=== PATIENT | male | born 1965 | race African-American/Black ===

== ENCOUNTER 2016-10-14 10:16 | Emergency (ER) | payer OTHER ==
[2016-10-14 10:24] VITALS: BMI 25.7
--- NOTE | 2016-10-14 11:39 | PDOC ---
History of Present Illness - General Chief Complaint: Rectal Bleed Stated Complaint: RECTAL BLEED Time Seen by Provider: 10/14/16 11:31 History Source: Patient - History of Present Illness Timing/Duration: reports: intermittent Quality: reports: mild Past History - Past Medical History Allergies/Adverse Reactions: Allergies Allergy/AdvReac Type Severity Reaction Status Date / Time No Known Allergies Allergy Verified 10/14/16 10:21 Home Medications: Ambulatory Orders Amlodipine Besylate [Norvasc -] 5 mg PO DAILY 12/15/13 Atorvastatin Ca [Lipitor] 10 mg PO HS 12/15/13 Naproxen [Naprosyn -] 500 mg PO BID PRN #14 tablet 08/05/15 Aspirin [Ecotrin] 81 mg PO DAILY 10/14/16 HTN: Yes Hypercholesterolemia: Yes Other medical history: sickle cell trait, heart murmur,umbalical hernia - Immunization History Immunization Up to Date: Yes - Psycho/Social/Smoking Cessation Hx Anxiety: No Suicidal Ideation: No Smoking History: Never smoked Have you smoked in the past 12 months: No Information on smoking cessation initiated: No Hx Alcohol Use: No Drug/Substance Use Hx: No Substance Use Type: Marijuana Review of Systems - Review of Systems Constitutional: No: Chills, Fever Respiratory: No: Shortness of Breath Cardiac (ROS): No: Chest Pain, Lightheadedness ABD/GI: Yes: Blood Streaked Bowels, Constipated. No: Diarrhea, Nausea, Vomiting , Abdominal cramping, Tarry Stools *Physical Exam - Vital Signs Last Vital Signs Temp Pulse Resp BP Pulse Ox 98.2 F 62 18 124/68 100 10/14/16 10:22 10/14/16 10:22 10/14/16 10:22 10/14/16 10:22 10/14/16 10:22 - Physical Exam General Appearance: Yes: Appropriately Dressed. No: Apparent Distress HEENT: positive: Normal Voice Neck: positive: Supple Respiratory/Chest: negative: Respiratory Distress Gastrointestinal/Abdominal: positive: Soft. negative: Tender Rectal Exam: positive: other (soft brown stool, no melena, no hemorrhoid or obvious fissure seen) Extremity: positive: Normal Inspection Integumentary: positive: Dry, Warm Neurologic: positive: Fully Oriented, Alert, Normal Mood/Affect ED Treatment Course - LABORATORY CBC & Chemistry Diagram: 10/14/16 11:43 08/15/17 11:43 Medical Decision Making - Medical Decision Making 10/14/16 11:36 51-year-old male history of hypertension on baby aspirin here with rectal bleeding. Patient states this morning after having a bowel movement, he noticed small amount of bright red blood in toilet. States his notices same yesterday. Patient states he does suffer from constipation, but on stool softeners, which helps relieve constipation. Denies abdominal pain, dizziness, nausea or vomiting. States he had a colonoscopy several years ago that was normal. See exam Stable GIB Has intermittent constipation, on stool softeners Takes baby asa daily Well estrellita and stable w/ unremarkable exam Will check labs and if normal, will dc w/ PMD and GI f/u 10/14/16 11:39 10/14/16 12:27 Trace blood on stool occult. Labs unremarkable and pt has remained stable in ED w/ no further GIB while here. Will dc w/ PMD c w/ PMD for possible GI f/u *DC/Admit/Observation/Transfer Diagnosis at time of Disposition: Lower GI bleed - Discharge Dispostion Disposition: HOME Condition at time of disposition: Good - Patient Instructions Printed Discharge Instructions: DI for Rectal Bleeding Additional Instructions: The cause of your lower GI bleed is possibly related to constipation. Your labs were normal in the ER. Please follow-up with your PMD for possible referral to a GI specialist
[2016-10-14 11:51] LABS: BASOPHIL 1.1 % (0-2.0); EOSINOPHIL 0.5 % (0-4.5); MCH 25.7 pg (25.7-33.7); MEAN PLT VOLUME 8.6 fl (7.5-11.1); PLATELET COUNT 208 K/MM3 (134-434); RDW 16.5 % (11.9-15.9); WHITE BLOOD COUNT 6.9 K/mm3 (4.0-10.0)
[2016-10-14 12:08] LABS: INR 1.04 (0.82-1.09); PROTHROMBIN TIME (PATIENT) 11.4 SEC (9.98-11.88)
[2016-10-14 12:15] LABS: ALBUMIN 4.2 g/dl (3.4-5.0); ALK PHOS 73 U/L (45-117); ANION GAP 7 (8-16); BILIRUBIN,TOTAL 0.4 mg/dL (0.2-1.0); CALCIUM 9.1 mg/dL (8.5-10.1); CO2 29 mmol/L (21-32); GLUCOSE,RANDOM 94 mg/dL (74-106); SGOT/AST 24 U/L (15-37); SGPT/ALT 29 U/L (12-78); TOT PROT 7.1 g/dl (6.4-8.2)
--- NOTE | 2016-10-14 12:27 | PDOC ---
*Physical Exam - Vital Signs Last Vital Signs Temp Pulse Resp BP Pulse Ox 98.2 F 62 18 124/68 100 10/14/16 10:22 10/14/16 10:22 10/14/16 10:22 10/14/16 10:22 10/14/16 10:22 ED Treatment Course - LABORATORY CBC & Chemistry Diagram: 10/14/16 11:43 10/14/16 11:43 - ADDITIONAL ORDERS Additional order review: Laboratory Results 10/14/16 10/14/16 12:03 11:43 INR 1.04 Stool Occult Blood Trace 10/14/16 11:43 RBC 5.08 MCV 78.0 L MCHC 33.0 RDW 16.5 H MPV 8.6 Neutrophils % 58.0 Lymphocytes % 25.8 Monocytes % 14.6 H Eosinophils % 0.5 Basophils % 1.1 Medical Decision Making - Medical Decision Making 10/14/16 12:50 Agree with PA's evaluation, assessment,and plan. 51M with HTN presents with blood streaked stool x 2 days. Exam here notable for brown stool with trace + guaiac. Labs and vitals are stable. Pt with no evidence of large volume bleed. No evidence of upper GI bleed. - F/u PMD and GI clinic *DC/Admit/Observation/Transfer Diagnosis at time of Disposition: Lower GI bleed - Discharge Dispostion Disposition: HOME Condition at time of disposition: Good - Referrals Referrals: Jam Farah [Primary Care Provider] - - Patient Instructions Printed Discharge Instructions: DI for Rectal Bleeding Additional Instructions: The cause of your lower GI bleed is possibly related to constipation. Your labs were normal in the ER. Please follow-up with your PMD for possible referral to a GI specialist
[2016-10-14 12:54] VITALS: BP 124/78; PULSE 78; TEMP 98.4
== END 2016-10-14 12:54 | disposition home or self-care (01) ==
LOC: JER 10:16
DX: K92.2 Gastrointestinal hemorrhage, unspecified (principal); I10 Essential (primary) hypertension; E78.00 Pure hypercholesterolemia, unspecified; R01.1 Cardiac murmur, unspecified; D57.3 Sickle-cell trait; Z79.82 Long term (current) use of aspirin
CPT/HCPCS: 36415; 80053; 82272; 85025; 85610; 86850; 86900; 86901; 99282-25

== ENCOUNTER 2016-11-02 16:47 | Emergency (ER) | payer OTHER ==
[2016-11-02 17:00] VITALS: BP 116/75; PULSE 76; TEMP 99.4; BMI 25.7
--- NOTE | 2016-11-02 17:36 | PDOC ---
History of Present Illness <Jonnie Day - Last Filed: 11/02/16 17:36> - General History Source: Patient Exam Limitations: No Limitations - History of Present Illness Initial Comments: 11/02/16 17:44 Patient is a 51-year-old male with a history of hyperlipidemia, hypertension and arthritis here today complaining of chills, diarrhea and abdominal discomfort since this AM. Patient states that he has been having diarrhea every hour. Patient also reports increased dizziness. He states that he drank 32 oz of water and had bowl of soup and cheerios today. He also notes that his PMD prescribed him stool softener to take everyday. He also reports passing a lot of gas. He denies any fever, cp, SOB, vomiting or LOC. <Julia Muniz - Last Filed: 11/02/16 17:48> <Dai Reynolds - Last Filed: 11/03/16 05:11> - General Chief Complaint: Pain, Acute Stated Complaint: FATIGUE, DIZZINESS Past History - Past Medical History HTN: Yes Hypercholesterolemia: Yes - Immunization History Immunization Up to Date: Yes - Psycho/Social/Smoking Cessation Hx Anxiety: No Suicidal Ideation: No Smoking History: Former smoker Have you smoked in the past 12 months: No Information on smoking cessation initiated: No Hx Alcohol Use: No Drug/Substance Use Hx: No Substance Use Type: Marijuana <Jonnie Day - Last Filed: 11/02/16 17:36> <Julia Muniz - Last Filed: 11/02/16 17:48> <Dai Reynolds - Last Filed: 11/03/16 05:11> - Past Medical History Allergies/Adverse Reactions: Allergies Allergy/AdvReac Type Severity Reaction Status Date / Time No Known Allergies Allergy Verified 11/02/16 16:57 Home Medications: Ambulatory Orders Amlodipine Besylate [Norvasc -] 5 mg PO DAILY 12/15/13 Atorvastatin Ca [Lipitor] 10 mg PO HS 12/15/13 Naproxen [Naprosyn -] 500 mg PO BID PRN #14 tablet 08/05/15 Aspirin [Ecotrin] 81 mg PO DAILY 10/14/16 Review of Systems - Review of Systems Able to Perform ROS?: Yes Comments:: 11/02/16 17:44 GENERAL/CONSTITUTIONAL: +chills. No fever. No weakness. HEAD, EYES, EARS, NOSE AND THROAT: No change in vision. No ear pain or discharge. No sore throat. CARDIOVASCULAR: No chest pain or shortness of breath. RESPIRATORY: No cough, wheezing, or hemoptysis. GASTROINTESTINAL: +diarrhea, abdominal discomfort. No nausea, vomiting or constipation. GENITOURINARY: No dysuria, frequency, or change in urination. MUSCULOSKELETAL: No joint or muscle swelling or pain. No neck or back pain. SKIN: No rash NEUROLOGIC: No headache, vertigo, loss of consciousness, or change in strength/ sensation. ENDOCRINE: No increased thirst. No abnormal weight change. HEMATOLOGIC/LYMPHATIC: No anemia, easy bleeding, or history of blood clots. ALLERGIC/IMMUNOLOGIC: No hives or skin allergy. <Julia Muniz - Last Filed: 11/02/16 17:48> *Physical Exam - Vital Signs Last Vital Signs Temp Pulse Resp BP Pulse Ox 99.4 F 76 19 116/75 100 11/02/16 16:57 11/02/16 16:57 11/02/16 16:57 11/02/16 16:57 11/02/16 16:57 <Jonnie Day - Last Filed: 11/02/16 17:36> - Vital Signs Last Vital Signs Temp Pulse Resp BP Pulse Ox 99.4 F 76 19 116/75 100 11/02/16 16:57 11/02/16 16:57 11/02/16 16:57 11/02/16 16:57 11/02/16 16:57 - Physical Exam Comments: 11/02/16 17:46 GENERAL: Awake, alert, and fully oriented, in no acute distress HEAD: No signs of trauma EYES: PERRLA, EOMI, sclera anicteric, conjunctiva clear ENT: Auricles normal inspection, hearing grossly normal, nares patent, oropharynx clear without exudates. Moist mucosa NECK: Normal ROM, supple, no lymphadenopathy, JVD, or masses LUNGS: Breath sounds equal, clear to auscultation bilaterally. No wheezes, and no crackles HEART: Regular rate and rhythm, normal S1 and S2, no murmurs, rubs or gallops ABDOMEN: Soft, nontender, normoactive bowel sounds. No guarding, no rebound. No masses EXTREMITIES: Normal range of motion, no edema. No clubbing or cyanosis. No cords, erythema, or tenderness NEUROLOGICAL: Cranial nerves II through XII grossly intact. Normal speech. SKIN: Warm, Dry, normal turgor, no rashes or lesions noted. <Julia Muniz - Last Filed: 11/02/16 17:48> - Vital Signs Last Vital Signs Temp Pulse Resp BP Pulse Ox 99.4 F 76 19 116/75 100 11/02/16 16:57 11/02/16 16:57 11/02/16 16:57 11/02/16 16:57 11/02/16 16:57 <Dai Reynolds - Last Filed: 11/03/16 05:11> ED Treatment Course - LABORATORY CBC & Chemistry Diagram: 11/02/16 18:15 11/02/16 18:15 - ADDITIONAL ORDERS Additional order review: Laboratory Results 11/02/16 11/02/16 19:56 18:15 Sodium 141 Potassium 3.7 Chloride 108 H Carbon Dioxide 24 Anion Gap 9 BUN 16 Creatinine 1.1 Creat Clearance w eGFR > 60 Random Glucose 89 Calcium 8.9 Total Bilirubin 0.5 D AST 21 D ALT 24 Alkaline Phosphatase 77 Total Protein 7.0 Albumin 3.7 Lipase 116 Urine Color Ltyellow Urine Appearance Clear Urine pH 5.0 Urine Protein Negative Urine Glucose (UA) Negative Urine Ketones Trace H Urine Blood 1+ H Urine Nitrite Negative Urine Bilirubin Negative Urine Urobilinogen Negative Ur Leukocyte Esterase Negative 11/02/16 18:15 RBC 5.09 MCV 76.8 L MCHC 33.9 RDW 16.1 H MPV 9.2 Neutrophils % 81.2 D Lymphocytes % 8.5 D Monocytes % 9.6 Eosinophils % 0.3 D Basophils % 0.4 - Medications Given in the ED: ED Medications Discontinued Medications Generic Name Dose Route Start Last Admin Trade Name Freq PRN Reason Stop Dose Admin Sodium Chloride 2,000 mls @ 1,000 mls/hr 11/02/16 17:44 11/02/16 18:19 Normal Saline - IV 11/02/16 19:43 1,000 mls/hr ASDIR STA Administration Ondansetron HCl 8 mg 11/02/16 17:44 11/02/16 18:19 Zofran Injection IVPB 11/02/16 17:45 8 mg ONCE ONE Administration <Dai Reynolds - Last Filed: 11/03/16 05:11> Medical Decision Making - Medical Decision Making 11/02/16 17:48 51 yr old male who presents to the ED with abdominal discomfort, diarrhea and dizziness. Patient reports taking stool softners daily for irregularity. Plan: IVF Orthostatic vital signs Meds Stool culture <Julia Muniz - Last Filed: 11/02/16 17:48> - Medical Decision Making 11/03/16 05:10 Pt hydrated and feeling better; likely food poisoning or viral gastroenteritis. He will follow with PMD. Rest; labs normal; home with light meals and hydration. <Dai Reynolds - Last Filed: 11/03/16 05:11> *DC/Admit/Observation/Transfer - Attestations Physician Attestion: 11/02/16 17:36 I, Dr. Jonnie Day, attest that this document has been prepared under my direction and personally reviewed by me in its entirety. I further attest, that it accurately reflects all work, treatment, procedures and medical decision -making performed by me. <Jonnie Day - Last Filed: 11/02/16 17:36> - Attestations Scribe Attestion: 11/02/16 17:46 Documentation prepared by LUCRECIA Glynn, acting as lpn or medical assistant for Jonnie Day DO. <Julia Muniz - Last Filed: 11/02/16 17:48> - Discharge Dispostion Admit: No <Dai Reynolds - Last Filed: 11/03/16 05:11> Diagnosis at time of Disposition: Dehydration - Discharge Dispostion Disposition: HOME Condition at time of disposition: Improved - Patient Instructions Printed Discharge Instructions: DI for Dehydration -- Adult - Post Discharge Activity Work/School Note: Back to Work
[2016-11-02] MEDS ORDERED: ONDANSETRON 4 MG/2 ML VIAL IVPB ONE (17:44)
[2016-11-02] MEDS ORDERED: SODIUM CHLORIDE 2,000 ML IV STA (17:44)
[2016-11-02] MEDS ORDERED: ONDANSETRON 4 MG/2 ML VIAL ONE (17:56)
[2016-11-02 18:22] LABS: BASOPHIL 0.4 % (0-2.0); EOSINOPHIL 0.3 % (0-4.5); MCH 26.1 pg (25.7-33.7); MCHC 33.9 g/dl (32.0-35.9); MEAN CELL VOLUME 76.8 fl (80-96); MEAN PLT VOLUME 9.2 fl (7.5-11.1); NEUTROPHILS 81.2 % (42.8-82.8); PLATELET COUNT 184 K/MM3 (134-434); RDW 16.1 % (11.9-15.9); WHITE BLOOD COUNT 10.9 K/mm3 (4.0-10.0)
[2016-11-02 18:54] LABS: ALBUMIN 3.7 g/dl (3.4-5.0); ALK PHOS 77 U/L (45-117); ANION GAP 9 (8-16); BILIRUBIN,TOTAL 0.5 mg/dL (0.2-1.0); CALCIUM 8.9 mg/dL (8.5-10.1); CO2 24 mmol/L (21-32); CREATININE 1.1 mg/dL (0.7-1.3); GLUCOSE,RANDOM 89 mg/dL (74-106); SGOT/AST 21 U/L (15-37); SGPT/ALT 24 U/L (12-78)
[2016-11-02 20:08] LABS: URINE APPEARANCE CLEAR; URINE BILIRUBIN NEGATIVE (NEGATIVE); URINE BLOOD 1+ (NEGATIVE); URINE COLOR LTYELLOW; URINE GLUCOSE (UA) NEGATIVE (NEGATIVE); URINE KETONE TRACE (NEGATIVE); URINE LEUK ESTERASE NEGATIVE (NEGATIVE); URINE NITRITE NEGATIVE (NEGATIVE); URINE PROTEIN NEGATIVE (NEGATIVE); URINE UROBILINOGEN NEGATIVE mg/dL (0.2-1.0)
== END 2016-11-02 21:59 | disposition home or self-care (01) ==
LOC: JER 16:47
PROC: 3E0337Z Introduction of Electrolytic and Water Balance Substance into Peripheral Vein, Percutaneous Approach (ICD-10-PCS; principal; 2016-11-02)
PROC: 3E033GC Introduction of Other Therapeutic Substance into Peripheral Vein, Percutaneous Approach (ICD-10-PCS; 2016-11-02)
DX: E86.0 Dehydration (principal); I10 Essential (primary) hypertension; E78.00 Pure hypercholesterolemia, unspecified; M12.9 Arthropathy, unspecified; Z87.891 Personal history of nicotine dependence
CPT/HCPCS: 36415; 80053; 81003; 81015; 83690; 85025; 99282-25

== ENCOUNTER 2017-07-29 08:52 | Emergency (ER) | payer OTHER ==
[2017-07-29 09:20] VITALS: BP 130/81; PULSE 53; TEMP 98.3; BMI 25.8
--- NOTE | 2017-07-29 09:46 | PDOC ---
History of Present Illness - General Chief Complaint: Back Pain Stated Complaint: PAIN/ BACK, RT SIDE Time Seen by Provider: 07/29/17 09:29 - History of Present Illness Initial Comments: 07/29/17 09:41 CHIEF COMPLAINT: Mid back pain HISTORY OF PRESENT ILLNESS:52-year-old man, Nonradiating pain, no neurosensory deficits, no bowel or bladder difficulty incontinence or urinary retention, no saddle anesthesia, no footdrop. No history of IVDU or hisotry of cancer. REVIEW OF SYSTEMS: GENERAL: Afebrile, denies any weakness RESPIRATORY: No cough, wheezing, or hemoptysis. CARDIAC: No chest pain or shortness of breath MUSCULOSKELETAL: Pain to right middle back. No point tenderness. SKIN : No erythema, no bruising, no deformity. GI/: Denies any abdominal pain, no urinary difficulty, incontinence or urinary retention. RECTAL: Denies any difficulty this A.m. NEUROLOGICAL: Denies any numbness or tingling. No neurosensory deficits. PHYSICAL EXAM: GENERAL: The patient is awake, alert, and fully oriented, in no acute distress. RESPIRATORY: Lungs clear bilaterally, no rhonchi wheezes or crackles CARDIAC: S1-S2 audible, no murmur rub or gallop MUSCULOSKELETAL: Pain to right middle back, nonradiating, no tingling or sensory deficit. Less than 2 second cap refill. GI/: Abdomen soft, nontender, nondistended. No rebound tenderness. No masses palpable. MUSCULOSKELETAL: No spinal point tenderness. Normal reflexive and no deficits to sensation or strength. SKIN: Warm, Dry, normal turgor, no erythema, no edema no bruising. Past History - Past Medical History Allergies/Adverse Reactions: Allergies Allergy/AdvReac Type Severity Reaction Status Date / Time No Known Allergies Allergy Verified 07/29/17 09:16 Home Medications: Ambulatory Orders Amlodipine Besylate [Norvasc -] 5 mg PO DAILY 12/15/13 Atorvastatin Ca [Lipitor] 10 mg PO HS 12/15/13 Aspirin [Ecotrin] 81 mg PO DAILY 10/14/16 Meloxicam 15 mg PO DAILY #10 tablet 07/29/17 COPD: No HTN: Yes Hypercholesterolemia: Yes Other medical history: arthritis - Immunization History Immunization Up to Date: Yes - Suicide/Smoking/Psychosocial Hx Smoking History: Former smoker Have you smoked in the past 12 months: No Information on smoking cessation initiated: No Hx Alcohol Use: No Drug/Substance Use Hx: No Substance Use Type: Marijuana *Physical Exam - Vital Signs Last Vital Signs Temp Pulse Resp BP Pulse Ox 98.3 F 53 L 20 130/81 100 07/29/17 09:17 07/29/17 09:17 07/29/17 09:17 07/29/17 09:17 07/29/17 09:17 Medical Decision Making - Medical Decision Making 07/29/17 09:46 A/P: 52-year-old male with acute on chronic back pain Pain currently 0/10 after taking Mobic Normal exam Discharge home with prescription for meloxicam. Patient to follow up with primary doctor for any continuing concerns *DC/Admit/Observation/Transfer Diagnosis at time of Disposition: Back pain Qualifiers: Back pain location: thoracic back pain Chronicity: unspecified Back pain laterality: right Qualified Code(s): M54.6 - Pain in thoracic spine - Discharge Dispostion Disposition: HOME Condition at time of disposition: Stable - Prescriptions Prescriptions: Meloxicam 15 mg PO DAILY #10 tablet - Referrals Referrals: Jam Farah [Primary Care Provider] - - Patient Instructions Additional Instructions: Take meloxicam as needed for pain. Warm moist heat applied to your back may help alleviate pain. Return to emergency department for numbness or tingling to the feet, worsening pain, or any other concerns. Thank you very much for choosing us to provide your emergent healthcare needs. - Post Discharge Activity Forms/Work/School Notes: Back to Work
[2017-07-29] MEDS ORDERED: ACETAMINOPHEN 500 MG TABLET (FP) PO ONE ×2 (09:52→09:56)
[2017-07-29] MEDS ORDERED: ACETAMINOPHEN 500 MG TABLET (FP) ONE (09:52)
== END 2017-07-29 09:58 | disposition home or self-care (01) ==
LOC: JERFT 08:52
DX: M54.6 Pain in thoracic spine (principal)
CPT/HCPCS: 99281-25

== ENCOUNTER 2020-08-26 08:45 | Emergency (ER) | payer OTHER ==
[2020-08-26 08:49] VITALS: BP 132/74; PULSE 96; TEMP 98; BMI 25.4
[2020-08-26] MEDS ORDERED: KETOROLAC TROMETHAMINE 30 MG/1 ML VIAL IM ONE (09:41)
[2020-08-26] MEDS ORDERED: KETOROLAC TROMETHAMINE 30 MG/1 ML VIAL ONE (09:42)
[2020-08-26 10:39] LABS: EPI CELLS 5 /uL (0-25.1); HYALINE CASTS 1 /uL (0-3.1); PH,URINE 5.5 (5.0-8.0); URINE APPEARANCE CLEAR; URINE BACTERIA 16 /uL (0-1359); URINE BILIRUBIN NEGATIVE (NEGATIVE); URINE COLOR YELLOW; URINE GLUCOSE (UA) NEGATIVE (NEGATIVE); URINE KETONE TRACE (NEGATIVE); URINE LEUK ESTERASE TRACE (NEGATIVE); URINE NITRITE NEGATIVE (NEGATIVE); URINE PROTEIN NEGATIVE (NEGATIVE); URINE RBC 4 /uL (0-23.9); URINE WBC 23 /uL (0-25.8)
== END 2020-08-26 11:10 | disposition home or self-care (01) ==
LOC: JER 08:45
PROC: 3E0233Z Introduction of Anti-inflammatory into Muscle, Percutaneous Approach (ICD-10-PCS; principal; 2020-08-26)
DX: M54.6 Pain in thoracic spine (principal)
CPT/HCPCS: 71046-TC-FY; 81003; 87086; 99284-25

== ENCOUNTER 2021-04-04 04:43 | Day surgery (SDC) | payer OTHER ==
[2021-04-01 16:24] VITALS: BMI 25.5
[2021-04-04 12:05] VITALS: TEMP 97.7
[2021-04-04 12:12] VITALS: PULSE 44
[2021-04-04 12:37] VITALS: BP 129/66
== END 2021-04-04 12:52 | disposition home or self-care (01) ==
LOC: JASU-ENDO 04:43
PROVIDERS: ATTEND Internal Medicine Gastroenterology
PROC: 0DBL8ZX Excision of Transverse Colon, Via Natural or Artificial Opening Endoscopic, Diagnostic (ICD-10-PCS; 2021-04-04)
PROC: 0DBN8ZX Excision of Sigmoid Colon, Via Natural or Artificial Opening Endoscopic, Diagnostic (ICD-10-PCS; principal; 2021-04-04 11:00)
DX: Z12.11 Encounter for screening for malignant neoplasm of colon (principal); K63.5 Polyp of colon; K62.1 Rectal polyp; K57.30 Diverticulosis of large intestine without perforation or abscess without bleeding; Z86.010 Personal history of colon polyps; I10 Essential (primary) hypertension
CPT/HCPCS: 88305-TC

== ENCOUNTER 2022-04-16 10:44 | Emergency (ER) | payer OTHER ==
[2022-04-16 11:00] VITALS: BP 156/77; PULSE 62; RESP 20; TEMP 98.6; BMI 22.4
== END 2022-04-16 15:26 | disposition home or self-care (01) ==
LOC: JER 10:44
DX: K40.90 Unilateral inguinal hernia, without obstruction or gangrene, not specified as recurrent (principal)
CPT/HCPCS: 99282-25

== ENCOUNTER 2022-09-20 13:53 | Emergency (ER) | payer OTHER ==
[2022-09-20 14:08] VITALS: BP 134/64; PULSE 66; RESP 20; TEMP 98.3; BMI 25.7
== END 2022-09-20 16:39 | disposition home or self-care (01) ==
LOC: JER 13:53
DX: S92.421A Displaced fracture of distal phalanx of right great toe, initial encounter for closed fracture (principal); M79.674 Pain in right toe(s); R22.41 Localized swelling, mass and lump, right lower limb; W20.8XXA Other cause of strike by thrown, projected or falling object, initial encounter; Y99.0 Civilian activity done for income or pay
CPT/HCPCS: 73660-TC-FY; 99283-25

== ENCOUNTER 2023-03-09 10:54 | Emergency (ER) | payer OTHER ==
[2023-03-09 11:02] VITALS: BP 109/46; PULSE 68; RESP 20; TEMP 98.4; BMI 23.7
== END 2023-03-09 13:22 | disposition home or self-care (01) ==
LOC: JER 10:54
DX: J06.9 Acute upper respiratory infection, unspecified (principal); B34.9 Viral infection, unspecified; R05.9 Cough, unspecified; R09.81 Nasal congestion; M79.10 Myalgia, unspecified site; R51.9 Headache, unspecified; Z20.822 Contact with and (suspected) exposure to COVID-19
CPT/HCPCS: 0241U-QW; 99283-25

== ENCOUNTER 2024-07-02 12:09 | Emergency (ER) | payer OTHER ==
[2024-07-02 12:16] VITALS: BP 121/77; PULSE 76; RESP 19; TEMP 98.8; BMI 24.6
[2024-07-02] MEDS ORDERED: NAPROXEN 500 MG TABLET ONE (13:38)
[2024-07-02] MEDS ORDERED: LIDOCAINE 4% PATCH TP ONE (13:38)
[2024-07-02] MEDS: NAPROXEN 500 MG TABLET PO ONE (13:43)
[2024-07-02] MEDS: LIDOCAINE 4% PATCH TP ONE (13:43)
[2024-07-02] MEDS ORDERED: LIDOCAINE PATCH REMOVAL MC SCH (22:00)
== END 2024-07-02 13:53 | disposition home or self-care (01) ==
LOC: JERFT 12:09
DX: M54.50 Low back pain, unspecified (principal); Z87.39 Personal history of other diseases of the musculoskeletal system and connective tissue
CPT/HCPCS: 99283-25